=== PATIENT | female | born 1980 | race Hispanic/Latino ===

== ENCOUNTER 2018-12-02 08:24 | Emergency (ER) | payer BC, OTHER ==
[2018-12-02] MEDS ORDERED: ACETAMINOPHEN EXTRA STRENGTH 500 MG TABLET ONE (08:40)
[2018-12-02 09:09] LABS: APPEARANCE,URINE Clear (CLEAR); BILIRUBIN,URINE Negative (NEGATIVE); COLOR,URINE Yellow (YELLOW); GLUCOSE, URINE (UA) Negative (NEGATIVE); KETONES,URINE Negative (NEGATIVE); LEUKOCYTE ESTERASE ,URINE Small (NEGATIVE); NITRATE,URINE Negative (NEGATIVE); OCCULT BLOOD,URINE Negative (NEGATIVE); PROTEIN,URINE Negative (NEGATIVE); UROBILINOGEN,URINE 0.2 mg/dL (0.2-1.0)
[2018-12-02 09:17] LABS: HCG,QUAL RESULT NEGATIVE (NEGATIVE)
[2018-12-02] MEDS ORDERED: ORPHENADRINE CITRATE 30 MG/ML ML ONE (09:44)
[2018-12-02] MEDS ORDERED: KETOROLAC TROMETHAMINE 60 MG/2 ML VIAL ONE (09:44)
[2018-12-02 10:07] LABS: BACTERIA,URINE Many /HPF (None Seen)
[2018-12-02 10:08] LABS: RBC,URINE 0-1 /HPF (0-1)
== END 2018-12-02 11:43 | disposition home or self-care (01) ==
LOC: EDH 08:24
DX: S33.5XXA Sprain of ligaments of lumbar spine, initial encounter (principal); Z88.0 Allergy status to penicillin; V49.49XA Driver injured in collision with other motor vehicles in traffic accident, initial encounter; Y93.89 Activity, other specified; Y92.89 Other specified places as the place of occurrence of the external cause; Y99.8 Other external cause status
CPT/HCPCS: 72100; 81001; 81025; 96372 ×2; 99285; J1885; J2360